=== PATIENT | male | born 1980 | race Caucasian/White ===

== ENCOUNTER 2022-08-13 04:55 | Inpatient (IN) | payer MEDICAID, SELFPAY ==
[2022-08-13] VITALS (11 sets, daily range): BP systolic 119–160; BP diastolic 67–90; PULSE 97–116; RESP 16–26; TEMP 36.3–38.1; O2SAT 95–97; BMI 26.7
--- NOTE | 2022-08-13 | ECG_ITS ---
Test Reason : increase heart rate Blood Pressure : / mmHG Vent. Rate : 116 BPM Atrial Rate : 116 BPM P-R Int : 134 ms QRS Dur : 082 ms QT Int : 350 ms P-R-T Axes : 037 040 001 degrees QTc Int : 486 ms Sinus tachycardia nonspecific T wave changes Abnormal RECG No previous ECGs available Referred By: Generic ED Physician Electronically Signed By:Uvaldo Calderon
--- NOTE | ~2022-08-13 | XR_ITS ---
EXAMINATION: XR CHEST CLINICAL INFORMATION: Febrile COMPARISON: 02/21/2019 TECHNIQUE: Frontal view of the chest was obtained. FINDINGS: Normal symmetric lung volumes. No parenchymal consolidation. No pleural effusion. No pneumothorax. Cardiomediastinal silhouette and pulmonary vascularity are within normal limits. No acute osseous abnormalities. XR/XR chest 1V IMPRESSION: Clear lungs
--- NOTE | ~2022-08-13 | CT_ITS ---
EXAMINATION: CT of the abdomen and pelvis with and without IV contrast/GI bleeding protocol CLINICAL INFORMATION: GI bleed. Cirrhosis. COMPARISON: Previous CT of the abdomen and pelvis May 2009 TECHNIQUE: Axial images through the abdomen and pelvis without IV contrast. Axial images through the abdomen and pelvis following 80 mL Omnipaque 350 IV contrast. Portal phase and 2 minute delayed venous phase imaging was performed. Unfortunately oral contrast was administered and arterial phase imaging was not performed.. Sagittal and coronal reconstructions on the technologist workstation were performed. This CT examination was performed using dose optimization techniques as appropriate, variously including the following: *Automated exposure control *Adjustment of mA and/or kV according to patient size (this includes techniques or standardized protocols for targeted exams where dose is matched to indication/reason for exam; i.e. extremities or head) *Use of iterative reconstruction technique. DLP 6 4 5 mg/cm. FINDINGS: The lung bases are clear. There is an esophageal hernia. There is heterogeneous fatty infiltration of the liver. The liver is enlarged. No definite evidence of cirrhosis. There is high attenuation in the gallbladder. No gallstones are seen. No biliary duct dilatation. The pancreas is normal. The spleen is normal. The adrenal glands and kidneys are normal. The bladder and prostate gland are normal. Unfortunately there appears to be: Oral contrast administration. This lowers sensitivity for detection of hemorrhage. There is diverticulosis of the colon. No evidence of diverticulitis or colitis. Small and large bowel is otherwise normal. The appendix is normal. There is an esophageal hernia. The stomach is collapsed. There is question of wall thickening of the esophageal hernia/proximal stomach. There are paraesophageal varices. No ascites. The main portal vein and splenic vein are patent. The hepatic veins are patent. The abdominal aorta is normal in caliber. Active arterial bleeding cannot be assessed as arterial phase imaging was not performed. No evidence of bleeding is appreciated. Small umbilical hernia containing fat. Bony structures are normal. CT/CT gi bleed abd pel wo/w IVcon IMPRESSION: Limited exam due to technique. Diverticulosis of the colon. No evidence of diverticulitis or colitis. Esophageal hernia. There may be wall thickening of the esophageal hernia. Small paraesophageal varices. Enlarged liver with heterogeneous fatty infiltration.
[2022-08-13 05:33] LABS: Hematocrit 25.7 % (42.0-52.0); Hemoglobin 8.5 g/dl (14.0-18.0); Mean Corpuscular HGB Conc 33.1 g/dl (31.0-36.0); Mean Corpuscular Hemoglobin 26.4 pg (27.0-33.0); Mean Corpuscular Volume 79.8 fL (80.0-98.0); Mean Platelet Volume 10.3 fL (9.4-12.4); NRBC Pct Auto 0.2 /100WBC (0.0-0.2); Platelet Count 117 X10*3/uL (160-400); Red Blood Count 3.22 X10*6/uL (4.60-5.80); Red Cell Distribution Width 15.5 % (11.0-16.0); White Blood Count 8.7 X10*3/uL (4.8-10.8)
--- NOTE | 2022-08-13 05:36 | ED_ITS ---
HPI - General Adult General Chief complaint: General Medical Stated complaint: NAUSEA W/NO REL OF MEDS, FROM [facility] PER EMS Time Seen by Provider: 08/13/22 05:33 Source: patient Mode of arrival: EMS Limitations: no limitations History of Present Illness HPI narrative: Patient alcoholic came from detox center [facility] as having severe nausea and vomiting , shaking unable to hold glass in his hand to drink water. Patient drinks vodka about 20 nips a day last drink was 2 days ago patient does have history of DTs in the past been to detox for last 2 days was given Valium and Zofran without much relief vomiting is dark in color also stool is blackish for last few days patient does have history of peptic ulcer disease with bleeding ulcer but 6 months ago not taking any PPI now. Patient does have epigastric tenderness. Related Data Allergies Allergy/AdvReac Type Severity Reaction Status Date / Time latex [LATEX] Allergy Unknown UNKNOWN Verified 08/13/22 05:12 trazodone AdvReac Stomach Verified 08/13/22 05:12 Upset Review of Systems Review of Systems: Yes all other systems are reviewed and are negative [facility] Social History Social History Alcohol intake: current Alcohol intake frequency: 3 or more drinks per day Alcohol type: hard liquor Smoked in Last 30 Days: No Use of substances other than those prescribed or required for medical reasons: No Advance Directives: No Advance Directives Information Provided: Yes Physical Exam ED Vital Signs: Vital Signs - 24 hr 08/13/22 04:57 Temperature 99.3 F Pulse Rate 116 H Respiratory Rate 22 H Blood Pressure 144/79 H Pulse Oximetry 97 Oxygen Delivery Method Room Air BMI result Body Mass Index 26.7 Appearance: Alert. Oriented X3. Shaking Eyes: PERRLA, No Nystagmus ENT: Pharynx normal. Oral Mucosa moist Neck: Normal inspection. Neck supple. CVS: Normal heart rate and rhythm. Pulses normal. Respiratory: No respiratory distress. Equal air entry bilateral, no wheezing/rales/rhonchi Abdomen: Soft, epigastric tenderness+ Bowel sounds are present, no mass palpable, no CVA tenderness Rectal: Black stool guaiac positive Skin: Skin warm and dry. Normal skin color. Normal skin turgor. Extremities: No lower extremity edema. No calf tenderness Neuro: Oriented X 3. No motor deficit. No sensory deficit.No cerebellar signs , cranial nerves II-XII intact Medications Administered Discontinued Medications Generic Name Dose Route Start Last Admin Trade Name Matt PRN Reason Stop Dose Admin Sodium Chloride 1,000 mls @ 999 mls/hr 08/13/22 05:33 08/13/22 05:42 Ns IV 08/13/22 06:33 999 mls/hr .Q1H1M ONE Administration Lorazepam 2 mg 08/13/22 05:33 08/13/22 05:38 Lorazepam 2 Mg/Ml Vial IVPUSH 08/13/22 05:34 2 mg ONCE ONE Administration Phenobarbital Sodium 300 mg 08/13/22 06:15 08/13/22 06:25 Phenobarbital Sodium 130 Mg/Ml Im Once IM 08/13/22 06:16 300 mg ONCE ONE Administration Protocol Medical Decision Making Medical Decision Making [facility] Narrative: Patient alcoholic withdrawal with significant anemia with alcoholic gastritis guaiac-positive stools anemic thrombocytopenic started on phenobarb protocol admit hospitalist informed about admission requested have a CT scan of the abdomen Consult Healthcare Provider Management of the patient was discussed with: Hospitalist Lab Data [facility] Lab Attestation statement: I reviewed the patient's lab results. 08/13/22 05:24 08/13/22 05:24 Labs: Lab Results 08/13/22 08/13/22 08/13/22 Range/Units 05:24 05:24 05:24 WBC 8.7 (4.8-10.8) X10*3/uL RBC 3.22 L (4.60-5.80) X10*6/uL Hgb 8.5 L (14.0-18.0) g/dl Hct 25.7 L (42.0-52.0) % MCV 79.8 L (80.0-98.0) fL MCH 26.4 L (27.0-33.0) pg MCHC 33.1 (31.0-36.0) g/dl RDW 15.5 (11.0-16.0) % Plt Count 117 L (160-400) X10*3/uL MPV 10.3 (9.4-12.4) fL Absolute Nucleated RBC 0.020 H (0.0-0.012) X10*3/uL Nucleated RBC % (auto) 0.2 (0.0-0.2) /100WBC Sodium 130 L (135-145) mmol/L Potassium 3.8 (3.3-5.1) mmol/L Chloride 94 L (96-108) mmol/L Carbon Dioxide 24 (22-29) mmol/L Anion Gap 16 (12-20) BUN 19 H (9-16) mg/dL Creatinine 0.68 (0.5-1.4) mg/dL Estim Creat Clear Calc 149.1 Estimated GFR > 60 Random Glucose 137 H (60-115) mg/dL Calcium 8.4 (8.4-10.2) mg/dL Magnesium 2.0 (1.6-2.6) mg/dL Total Bilirubin 1.0 (0.0-1.0) mg/dL AST 112 H (5-37) U/L ALT 49 H (0-40) U/L Alkaline Phosphatase 93 (39-117) U/L Total Protein 6.1 L (6.5-8.0) g/dL Albumin 3.6 (3.5-5.0) g/dL COVID-19 (REBEL) (Negative) COVID-19 Clin Com S. pyogenes GrpA KIRTI Negative (Negative) 08/13/22 Range/Units 05:24 WBC (4.8-10.8) X10*3/uL RBC (4.60-5.80) X10*6/uL Hgb (14.0-18.0) g/dl Hct (42.0-52.0) % MCV (80.0-98.0) fL MCH (27.0-33.0) pg MCHC (31.0-36.0) g/dl RDW (11.0-16.0) % Plt Count (160-400) X10*3/uL MPV (9.4-12.4) fL Absolute Nucleated RBC (0.0-0.012) X10*3/uL Nucleated RBC % (auto) (0.0-0.2) /100WBC Sodium (135-145) mmol/L Potassium (3.3-5.1) mmol/L Chloride (96-108) mmol/L Carbon Dioxide (22-29) mmol/L Anion Gap (12-20) BUN (9-16) mg/dL Creatinine (0.5-1.4) mg/dL Estim Creat Clear Calc Estimated GFR Random Glucose (60-115) mg/dL Calcium (8.4-10.2) mg/dL Magnesium (1.6-2.6) mg/dL Total Bilirubin (0.0-1.0) mg/dL AST (5-37) U/L ALT (0-40) U/L Alkaline Phosphatase (39-117) U/L Total Protein (6.5-8.0) g/dL Albumin (3.5-5.0) g/dL COVID-19 (REBEL) Negative (Negative) COVID-19 Clin Com See Note S. pyogenes GrpA KIRTI (Negative) Independent Interpretation I performed an independent interpretation of an: EKG Interpretation: Sinus tachycardia with heart rate of 116 normal interval normal axis no acute ST-T changes no acute ischemia Discharge Plan Discharge Clinical Impression: Alcohol withdrawal, Alcoholic gastritis with bleeding Patient Disposition: Admitted As Inpatient
[2022-08-13] MEDS: LORazepam 2 MG/ML VIAL IVPUSH (05:38)
[2022-08-13 05:39] LABS: IDNOW Serial# 08D9AD1C; Strep A Nucleic Acid Negative (Negative)
[2022-08-13] MEDS: 0.9 % Sodium Chloride 1,000 ML 999 ML IV ×2 (05:42→06:47)
[2022-08-13 05:50] LABS: Alanine Aminotransferase 49 U/L (0-40); Albumin Level 3.6 g/dL (3.5-5.0); Alkaline Phosphatase 93 U/L (39-117); Anion Gap 16 (12-20); Aspartate Amino Transferase 112 U/L (5-37); Blood Urea Nitrogen 19 mg/dL (9-16); Calcium 8.4 mg/dL (8.4-10.2); Carbon Dioxide 24 mmol/L (22-29); Chloride 94 mmol/L (96-108); Creatinine Clr Calc Pharmacy 149.1; Estimated Glomerular Filt Rate > 60; Glucose Random 137 mg/dL (60-115); Potassium 3.8 mmol/L (3.3-5.1); Sodium 130 mmol/L (135-145); Total Protein 6.1 g/dL (6.5-8.0)
[2022-08-13 05:55] LABS: COVID-19 Test Negative (Negative); IDNOW Serial# BCCEAD1C
--- NOTE | 2022-08-13 06:01 | MHC.EDTECH ---
EKG WAS DONE 05:05 AM
[2022-08-13] MEDS: PHENobarbitaL sodium 130 MG/ML IM ONCE 300 MG IM (06:25)
[2022-08-13] MEDS: Thiamine HCL 100 MG TABLET PO (06:37)
[2022-08-13] MEDS: Folic Acid 1 MG TABLET PO (06:37)
[2022-08-13] MEDS: Ferrous Sulfate 324 MG TABLET.DR PO ×2 (06:37→18:00)
[2022-08-13] MEDS: Pantoprazole Sodium 40 MG/10 ML VIAL 80 MG IVPUSH (06:40)
[2022-08-13 06:44] LABS: OBS Int Ctl Valid YES; OBS1 POSITIVE (NEGATIVE)
[2022-08-13] MEDS: Prochlorperazine Edisylate 10 MG/2 ML VIAL IVPUSH (06:46)
[2022-08-13 06:52] LABS: Iron 43 mcg/dL (45-160); Percent Iron Saturation 14 % (15-50); Total Iron Binding Capacity 314 mcg/dL (228-428); Unsaturated Iron Binding 271 ug/dL
[2022-08-13 07:24] LABS: Folate 4.8 ng/mL (> or = 4.0); Vitamin B12 445 pg/mL (200-900)
--- NOTE | 2022-08-13 07:24 | PM.IMHP ---
History of Present Illness Date of Service: 08/13/22 Chief Complaint: hand tremors 42 year old man presenting with severe hand tremors from alcohol withdrawal. He was at [facility] for detox and was noted to have such severe tremors he could not hold a glass. He was sent to the ED for further evaluation. He drinks about 15 shots a day at home and stopped drinking 08/12/22. He lives at home with his kids with his parents support. He denies chest pain, shortness breath, nausea vomiting diarrhea, recent travel, recent illness. He was noted to be anemic with hemoglobin of 8.5 and hematocrit of 25.7 with positive stool occult. Initial sodium of 130. Abdominal pelvic CT with diverticulosis of the colon with no evidence of diverticulitis, colitis. He has been tachycardia: The ER secondary to alcohol withdrawal and blood pressure mildly elevated. He was started on phenobarbital, given IV fluids, Ativan, vitamins and iron. He will be admitted for further management and treatment of acute alcohol withdrawal. Review of Systems Review of Systems: Denies any recent fever chills or decrease in appetite respiratory denies any shortness of breath coverage production cardiovascular he denies chest pain gastrointestinal denies any dysphagia abdominal pain nausea vomiting or diarrhea genitourinary denies any dysuria frequency or hematuria musculoskeletal denies any joint pain or swelling neuropsych denies any weakness or seizures, reported hand tremors all other systems reviewed are negative [facility] Medical History (Updated 08/13/22 @ 14:50 by Shu Augustine NP) Depression Pertinent family history: no cardiac disease Social History Household Members: Children [facility] Do you presently have visiting nurse or other home services: No Alcohol intake: current Alcohol intake frequency: 3 or more drinks per day Alcohol type: hard liquor Patient Tobacco Use Status: Never used Tobacco Smoked in Last 30 Days: No Use of substances other than those prescribed or required for medical reasons: No Have you been hit, kicked, punched, or otherwise hurt by someone within the past year? If so, by whom?: No Do you feel safe in your current relationship?: Yes Is there a partner from a previous relationship who is making you feel unsafe now?: No Are you made to feel afraid or neglected: No Advance Directives: No Advance Directives Information Provided: Yes Do you have thoughts of harming others: None Do you have a plan to hurt others: No Plan Recently lost weight without trying: Yes How much weight loss: 2-13 pounds Eating poorly because of decreased appetite: Yes Nutrition screen score: 4 Nutrition Risks: No Nutritional Risk Poor oral hygiene: No Meds Allergies Allergy/AdvReac Type Severity Reaction Status Date / Time latex [LATEX] Allergy Unknown UNKNOWN Verified 08/13/22 05:12 trazodone AdvReac Stomach Verified 08/13/22 05:12 Upset Active Medications: Current Medications Acetaminophen (Acetaminophen 325 Mg Tablet) 650 mg PO Q6H PRN PRN Reason: Pain, Mild (Pain Scale 1-3) Ondansetron HCl (Ondansetron Hcl 4 Mg/2 Ml Vial) 4 mg IVPUSH Q8H PRN PRN Reason: Nausea and Vomiting Pharmacy Consult (Consult Rx Etoh Phenob Im/Po) 1 each MISCELLANE ONCE PRN; Protocol PRN Reason: Consult order Phenobarbital (Phenobarbital 30 Mg Tablet) 60 mg PO BID [facility] Stop: 08/15/22 21:01 Phenobarbital (Phenobarbital 30 Mg Tablet) 30 mg PO BID [facility]; Protocol Stop: 08/17/22 21:01 Phenobarbital (Phenobarbital 30 Mg Tablet) 30 mg PO DAILY [facility]; Protocol Stop: 08/19/22 09:01 Phenobarbital Sodium (Phenobarbital Sodium 130 Mg/Ml Vial Im Q3hx2) 225 mg IM Q3H [facility]; Protocol Stop: 08/13/22 12:31 Sodium Chloride (0.9 % Sodium Chloride Flush 3 Ml Syringe) 3 ml IVFLUSH QSHIFT [facility] Home Medications Medication Instructions Recorded Confirmed Last Taken Type acamprosate 333 mg tablet,delayed 666 mg PO TID 08/13/22 08/13/22 Unknown History release bupropion HCl 150 mg tablet,12 hr 150 mg PO DAILY 08/13/22 08/13/22 Unknown History sustained-release fluoxetine 20 mg capsule (Prozac) 20 mg PO DAILY 08/13/22 08/13/22 Unknown History pantoprazole 40 mg tablet,delayed 40 mg PO DAILY 08/13/22 08/13/22 Unknown History release Physical Exam Vital Signs and Narrative: Vital Signs: Last Vital Signs Temp 99.3 F 08/13/22 04:57 Pulse 113 H 08/13/22 07:20 Resp 16 08/13/22 07:20 BP 144/79 H 08/13/22 04:57 Pulse Ox 96 08/13/22 07:20 O2 Del Method Room Air 08/13/22 07:20 BMI result Body Mass Index 26.7 Appearing in no acute distress head is normocephalic atraumatic eyes pupils are PERRLA sclera is anicteric mouth throat mucous membranes are intact and moist neck is supple no lymphadenopathy, no JVD noted lung sounds are clear to auscultation heart regular rate rhythm, clear S1, S2 positive bowel sounds, abdomen is soft, nontender neuro patient is alert x3, no focal deficits hand tremors Results Labs 08/13/22 05:24 08/13/22 05:24 Labs: Laboratory Results - last 24 hr 08/13/22 08/13/22 08/13/22 05:24 05:24 05:24 MCV 79.8 L MCH 26.4 L MCHC 33.1 RDW 15.5 Plt Count 117 L MPV 10.3 Absolute Nucleated RBC 0.020 H Nucleated RBC % (auto) 0.2 Anion Gap 16 Estim Creat Clear Calc 149.1 Estimated GFR > 60 Random Glucose 137 H Calcium 8.4 Magnesium 2.0 Iron 43 L TIBC 314 % Saturation 14 L Unsat Iron Binding 271 Total Bilirubin 1.0 AST 112 H ALT 49 H Alkaline Phosphatase 93 Total Protein 6.1 L Albumin 3.6 Stool Occult Blood COVID-19 (REBEL) COVID-19 Clin Com S. pyogenes GrpA KIRTI Negative Blood Type Antibody Screen 08/13/22 08/13/22 08/13/22 05:24 06:30 06:33 MCV MCH MCHC RDW Plt Count MPV Absolute Nucleated RBC Nucleated RBC % (auto) Anion Gap Estim Creat Clear Calc Estimated GFR Random Glucose Calcium Magnesium Iron TIBC % Saturation Unsat Iron Binding Total Bilirubin AST ALT Alkaline Phosphatase Total Protein Albumin Stool Occult Blood POSITIVE COVID-19 (REBEL) Negative COVID-19 Clin Com See Note S. pyogenes GrpA KIRTI Blood Type O Positive Antibody Screen NEGATIVE Assessment and Plan (1) Alcohol withdrawal: Status: Acute Plan 42 year old man admitted with alcohol withdrawal symptoms. Was at [facility] for detox. Alcohol withdrawal Last drink was 08/12/22 started on phenobarbitol IV fluids vitamins encourage food intake addiction consult Anemia, unspecified Likely alcoholic gastritis and iron deficiency occult stool positive IV pepcid for now iron supplementation GI following> no EGD at this time follow HH Hyponatremia secondary to dehydration continue LR for now monitor sodium closely Transaminitis secondary to alcohol use DVT propylaxis with SCD boots Attending Dr. Rodrigues Full code 2 midnight for tx of alcohol withdrawl requiring phenobarbitol protocol and electrolyte monitoring Time Spent With Patient Time: Total time managing care of this patient today ____ minutes. Quality Stroke Does the patient have a stroke diagnosis?: No VTE Prior VTE?: No VTE Risk Level:: Medical - moderate - high VTE Device Contraindication: N/A - Device Ordered VTE Drug Contraindication: Treatment Not Indicated
[2022-08-13] MEDS: Acetaminophen 325 MG TABLET 650 MG PO ×3 (07:48→21:30)
[2022-08-13] MEDS: Famotidine/PF 20 MG/2 ML VIAL IVPUSH ×2 (07:48→21:30)
[2022-08-13] MEDS: ondansetron HCL 4 MG/2 ML VIAL IVPUSH ×2 (07:48→21:30)
[2022-08-13] MEDS: PHENobarbitaL sodium 130 MG/ML VIAL IM Q3Hx2 225 MG IM ×2 (07:49→12:52)
[2022-08-13] MEDS: 0.9 % Sodium Chloride Flush 3 ML SYRINGE IVFLUSH (07:56)
--- NOTE | 2022-08-13 08:00 | PC.NURSE ---
Initial contact with pt. pt ao x 4, calm and cooperative with care. lung sounds clear, ST on monitor without ectopy, abd soft and nontender, no peripheral edema noted. pt denies any chest pain, denies any shortness of breath. hiccuping during assessement. ciwa as charted. breakfast offered, pt declined at this time. meds per order. repositioned for comfort.
[2022-08-13] MEDS: iohexoL 350 MG/ML 100 ML INFUS..BTL IV (09:19)
[2022-08-13 09:56] LABS: Sodium 131 mmol/L (135-145)
--- NOTE | 2022-08-13 10:17 | PC.NURSE ---
rn to rn report given to titi. pt aware of plan of care for transfer to room 445.
--- NOTE | 2022-08-13 11:57 | PM.GICN ---
History of Present Illness Data of Consult Service Date: 08/13/22 Requesting physician: Shu Augustine Primary Care Provider: Unknown Physician HPI Reason for consult: anemia 42 yr old m with hx of alcoholism who I am seeing for assessment for anemia Patient was at a detox center, with last alcohol drink 2 d ago. He would normally drink 20 nips/day of vodka, now he was having severe nausea and coffee colored emesis with shakes and black colored stools. He denies nsaid use. HE said he has hx of ulcers in past but not been on PPI. Denies dysphagia, no reflux or abdominal pain. No chest pain. Imaging- diverticulosis, small varices, hiatal hernia, fatty liver, thickened esophagus labs; anemia, na 130, iron sat- 14%, mild elevated ast/alt Review of Systems Review of Systems: Constitutional : No Weight loss, No Fever, No Chills ENT/Mouth : No sore throat, No Rhinorrhea Eyes: No Swelling, No Redness Cardiovascular : No Chest Pain, No SOB, No Edema Respiratory : No Cough, No Sputum, No Wheezing Gastrointestinal : see HPI Genitourinary : NO Dysuria, No Urinary Frequency, No Hematuria, No Urgency Musculoskeletal : No joint pain, No Myalgias, No Joint Swelling Skin : No Skin Lesions, No rash Neuro : + Weakness, No Numbness, No Dizziness, No Headache Psych : No Anxiety/Panic, No Depression Heme/Lymph: No Bruising, No Lymphadenopathy Endocrine : No Polyuria, No Polydipsia All other systems reviewed and are negative. [facility] Past Medical History Medical History (Updated 08/13/22 @ 14:50 by Shu Augustine NP) Depression Family History Pertinent family history: no fh of ulcers Social History Social History Household Members: Children Housing: Condominium Do you presently have visiting nurse or other home services: No Alcohol intake: current Alcohol intake frequency: 3 or more drinks per day Alcohol type: hard liquor Patient Tobacco Use Status: Never used Tobacco Smoked in Last 30 Days: No Use of substances other than those prescribed or required for medical reasons: No Currently Displaying Signs/Symptoms of Drug Intoxication Withdrawal: No Have you been hit, kicked, punched, or otherwise hurt by someone within the past year? If so, by whom?: No Do you feel safe in your current relationship?: Yes Is there a partner from a previous relationship who is making you feel unsafe now?: No Are you made to feel afraid or neglected: No Advance Directives: No Advance Directives Information Provided: Yes Do you have thoughts of harming others: None Do you have a plan to hurt others: No Plan Recently lost weight without trying: Yes How much weight loss: 2-13 pounds Eating poorly because of decreased appetite: Yes Nutrition screen score: 4 Nutrition Risks: No Nutritional Risk Poor oral hygiene: No Meds Allergies Allergy/AdvReac Type Severity Reaction Status Date / Time latex [LATEX] Allergy Unknown UNKNOWN Verified 08/13/22 05:12 trazodone AdvReac Stomach Verified 08/13/22 05:12 Upset Active Medications: Current Medications Acetaminophen (Acetaminophen 325 Mg Tablet) 650 mg PO Q6H PRN PRN Reason: Pain, Mild (Pain Scale 1-3) Last Admin: 08/13/22 07:48 Dose: 650 mg Famotidine (Famotidine/Pf 20 Mg/2 Ml Vial) 20 mg IVPUSH BID [facility] Last Admin: 08/13/22 07:48 Dose: 20 mg Ondansetron HCl (Ondansetron Hcl 4 Mg/2 Ml Vial) 4 mg IVPUSH Q8H PRN PRN Reason: Nausea and Vomiting Last Admin: 08/13/22 07:48 Dose: 4 mg Pharmacy Consult (Consult Rx Etoh Phenob Im/Po) 1 each MISCELLANE ONCE PRN; Protocol PRN Reason: Consult order Phenobarbital (Phenobarbital 30 Mg Tablet) 60 mg PO BID [facility] Stop: 08/15/22 21:01 Phenobarbital (Phenobarbital 30 Mg Tablet) 30 mg PO BID [facility]; Protocol Stop: 08/17/22 21:01 Phenobarbital (Phenobarbital 30 Mg Tablet) 30 mg PO DAILY [facility]; Protocol Stop: 08/19/22 09:01 Phenobarbital Sodium (Phenobarbital Sodium 130 Mg/Ml Vial Im Q3hx2) 225 mg IM Q3H [facility]; Protocol Stop: 08/13/22 12:31 Last Admin: 08/13/22 07:49 Dose: 225 mg Sodium Chloride (0.9 % Sodium Chloride Flush 3 Ml Syringe) 3 ml IVFLUSH QSHIFT [facility] Last Admin: 08/13/22 07:56 Dose: 3 ml Home Medications Medication Instructions Recorded Confirmed Last Taken Type acamprosate 333 mg tablet,delayed 666 mg PO TID 08/13/22 08/13/22 Unknown History release bupropion HCl 150 mg tablet,12 hr 150 mg PO DAILY 08/13/22 08/13/22 Unknown History sustained-release fluoxetine 20 mg capsule (Prozac) 20 mg PO DAILY 08/13/22 08/13/22 Unknown History pantoprazole 40 mg tablet,delayed 40 mg PO DAILY 08/13/22 08/13/22 Unknown History release Physical Exam Vital Signs: Vital Signs: Last Vital Signs Temp 97.3 F 08/13/22 10:54 Pulse 106 H 08/13/22 10:54 Resp 20 08/13/22 10:54 BP 140/75 H 08/13/22 10:54 Pulse Ox 96 08/13/22 10:54 O2 Del Method Room Air 08/13/22 10:54 BMI result Body Mass Index 26.7 EXAM: GENERAL: The patient is dishevelled VITAL SIGNS:see workflow HEENT: Nonicteric sclerae, PERRLA, EOMI. Oropharynx clear. Moist mucous membranes. Conjunctivae appear well perfused. No thyroid mass. CHEST: Chest wall is nontender. HEART: Regular rate and rhythm without murmurs. LUNGS: Clear to auscultation bilaterally. SKIN: No rash, no excessive bruising, petechiae, or purpura. NEUROLOGIC: Cranial nerves II-XII intact without motor/sensory deficit. psych--slightly drowsy, on alcohol withdrawal protocol Results Labs 08/13/22 05:24 08/13/22 09:34 Labs: Short CBC 08/13/22 Range/Units 05:24 WBC 8.7 (4.8-10.8) X10*3/uL Hgb 8.5 L (14.0-18.0) g/dl Hct 25.7 L (42.0-52.0) % Plt Count 117 L (160-400) X10*3/uL BMP 08/13/22 08/13/22 05:24 09:34 Sodium 130 L 131 L Potassium 3.8 Chloride 94 L Carbon Dioxide 24 BUN 19 H Creatinine 0.68 Calcium 8.4 Liver Function 08/13/22 Range/Units 05:24 Total Bilirubin 1.0 (0.0-1.0) mg/dL AST 112 H (5-37) U/L ALT 49 H (0-40) U/L Alkaline Phosphatase 93 (39-117) U/L Albumin 3.6 (3.5-5.0) g/dL Imaging CT scan - abdomen: My impression: enlarged fatty liver, thickened esophagus Assessment and Plan (1) Alcohol withdrawal: Status: Acute (2) Alcoholic gastritis with bleeding: Status: Acute Plan 1/ Acute blood loss anemia most likely alcoholic gastritis or esophagitis with MW tear, currently in acute alcohol withdrawal PLAN: 1/ cont with alcohol withdrawal protocol 2/ high dose PPI BD, can add carafate 3/ avoid nsaids 4/ if ongoing sx and blood loss then EGD for assessment Time Spent With Patient Time: Total time managing care of this patient today ____ minutes. Procedures Date of Service Date of Service: 08/13/22
[2022-08-13] MEDS: Lactated Ringers 1,000 ML 100 ML IVCONT (14:57)
--- NOTE | 2022-08-13 15:48 | MHC.RECOVRN ---
This comic writer checked in with patient after receiving addiction consult, patient was laying in bed, lights dim. Patient reports not feeling well, feeling extremely nauseous. Patient agreeable to the Addiction/Recovery Team returning tomorrow when patient more stable.
[2022-08-13 15:57] LABS: Sodium 131 mmol/L (135-145)
[2022-08-14] VITALS (13 sets, daily range): BP systolic 114–140; BP diastolic 59–79; PULSE 88–115; RESP 16–20; TEMP 36–38.1; O2SAT 95–100
[2022-08-14] MEDS: PHENobarbitaL sodium 130 MG/ML VIAL IM (00:54)
[2022-08-14 00:56] LABS: Lactic Acid 0.9 mmol/L (0.5-2.0)
[2022-08-14 04:07] LABS: Appearance Urine Clear; Color Urine Yellow; Glucose Urine UA Negative (Negative); Leukocyte Esterase Urine Negative (Negative); Nitrite Urine Negative (Negative); PH 8.5 (5.0-9.0); Urine Blood Negative (Negative); Urine Ketones Negative (Negative); Urine Protein Negative (Neg-Trace)
[2022-08-14 04:19] LABS: Amphetamine Screen Urine Not Detected (Not Detect); Barbiturates, Urine POSITIVE (Not Detect); Benzodiazepines Screen Urine POSITIVE (Not Detect); Cannabinoid Screen Urine Not Detected (Not Detect); Cocaine Screen Urine Not Detected (Not Detect); Fentanyl, urine Not Detected (Not Detect); Opiate Screen Urine Not Detected (Not Detect); Phencyclidine Screen Urine Not Detected (Not Detect)
--- NOTE | 2022-08-14 05:38 | PC.NURSE ---
There was a IT computer glitch and the documentation done under RN Philomena Morse on 08/13 around 20:00 should be under RN Dev Edwards. IT aware.
[2022-08-14] MEDS: Lactated Ringers 1,000 ML 100 ML IVCONT (05:45)
[2022-08-14] MEDS: Prochlorperazine Edisylate 10 MG/2 ML VIAL 5 MG IVPUSH (05:45)
[2022-08-14 07:16] LABS: Alanine Aminotransferase 41 U/L (0-40); Albumin Level 2.9 g/dL (3.5-5.0); Alkaline Phosphatase 82 U/L (39-117); Aspartate Amino Transferase 118 U/L (5-37); Bilirubin Direct 0.3 mg/dL (0.0-0.5); Bilirubin Total 0.8 mg/dL (0.0-1.0); Magnesium 2.1 mg/dL (1.6-2.6)
[2022-08-14 07:17] LABS: Alanine Aminotransferase 41 U/L (0-40); Albumin Level 2.9 g/dL (3.5-5.0); Alkaline Phosphatase 82 U/L (39-117); Anion Gap 10 (12-20); Aspartate Amino Transferase 119 U/L (5-37); Bilirubin Total 0.8 mg/dL (0.0-1.0); Blood Urea Nitrogen 12 mg/dL (9-16); Calcium 7.7 mg/dL (8.4-10.2); Carbon Dioxide 25 mmol/L (22-29); Chloride 102 mmol/L (96-108); Estimated Glomerular Filt Rate > 60; Glucose Random 95 mg/dL (60-115); Potassium 3.9 mmol/L (3.3-5.1); Sodium 133 mmol/L (135-145)
[2022-08-14] MEDS: PHENobarbitaL 30 MG TABLET 60 MG PO ×2 (08:15→21:28)
[2022-08-14] MEDS: Famotidine/PF 20 MG/2 ML VIAL IVPUSH (08:16)
[2022-08-14] MEDS: FLUoxetine HCl 20 MG CAPSULE PO (08:16)
[2022-08-14] MEDS: Ferrous Sulfate 324 MG TABLET.DR PO ×2 (08:17→17:17)
[2022-08-14] MEDS: Folic Acid 1 MG TABLET PO (08:19)
[2022-08-14] MEDS: Thiamine HCL 100 MG TABLET PO (08:19)
[2022-08-14 08:52] LABS: Hematocrit 23.2 % (42.0-52.0); Hemoglobin 7.5 g/dl (14.0-18.0); Mean Corpuscular HGB Conc 32.3 g/dl (31.0-36.0); Mean Corpuscular Hemoglobin 27.4 pg (27.0-33.0); Mean Corpuscular Volume 84.7 fL (80.0-98.0); NRBC Pct Auto 0.4 /100WBC (0.0-0.2); Platelet Count 100 X10*3/uL (160-400); Red Blood Count 2.74 X10*6/uL (4.60-5.80); Red Cell Distribution Width 15.9 % (11.0-16.0); White Blood Count 4.8 X10*3/uL (4.8-10.8)
--- NOTE | 2022-08-14 09:37 | MHC.CM.PN ---
CM MET WITH PT AT BEDSIDE, LIVES WITH 2 CHILDREN [place]. CHILDREN ARE STAYING WITH PARENTS PT CAME FROM IP DETOX AT [facility]. PT IS UNABLE TO REACH PARENTS NUMBER LISTED IS INCORRECT AND HE DOES NOT HAVE NEW NUMBER. CM CALLED [facility] AND THEY DO NOT HAVE CURRENT NUMBER. INDEPENDENT AT BASELINE. NO COVID VAX NO HCP, DECLINES AT THIS TIME. PCP DR. KAPLAN IN [place] DP: HOME, DOES NOT WISH TO RETURN TO [facility] BUT WOULD LIKE TO DO A OP DETOX PROGRAM. FAMILY WILL TRANSPORT IF CAN REACH. CM WILL CONTINUE TO FOLLOW FOR DC PLAN.
--- NOTE | 2022-08-14 10:22 | MHC.RECOVRN ---
Briefly met with pt in 445 to introduce self and provide support. Pt laying in bed, awake, alert, does not easily engage in conversation, reporting not feeling well, slightly tremulous. Pt reports having been at [facility], however, became very dehydrated and was brought to [facility]. Pt subsequently admitted for management of alcohol withdrawal. Pt reports having been hospitalized for similar circumstances in the past. Pt reports desire to attend online AA meetings once discharged. Currently, pt requesting to rest. Will continue to follow.
[2022-08-14] MEDS: ondansetron HCL 4 MG/2 ML VIAL IVPUSH (10:55)
--- NOTE | 2022-08-14 13:22 | P.PNIM_ITS ---
Subjective Subjective Date of Service: 08/14/22 Interval History: being followed for alcohol withdrawal and coffee-ground emesis, feeling better less shakiness complaining of persistent mid abdominal discomfort is NPO for possible EGD, however patient does not want to proceed with upper endoscopy, no further episodes of coffee-ground emesis or bloody stools, denies lightheadedness dizziness, no chest pain, no shortness of breath, no urinary symptoms. Review of Systems Review of Systems: Yes all other systems are reviewed and are negative Physical Exam Vital Signs: Vital Signs: Last Vital Signs Temp 100.6 F H 08/14/22 11:53 Pulse 94 08/14/22 11:53 Resp 18 08/14/22 11:53 BP 122/72 08/14/22 11:53 Pulse Ox 99 08/14/22 11:53 O2 Del Method Room Air 08/14/22 11:53 BMI result Body Mass Index 26.7 Const: Other: General awake alert x3, resting comfortably in no acute distress. Neck is supple no JVD. CVS regular rate rhythm, Respiratory lungs clear to auscultation, no respiratory distress, no wheeze, no rhonchi. Gastrointestinal abdomen soft, mild mid abdominal tenderness, bowel sounds audible, no guarding , no rigidity. Extremities no edema. Neuro nonfocal ,speech clear, mild hand tremors. Skin no rash psych appropriate affect Objective Data Active Medications Acetaminophen (Acetaminophen 325 Mg Tablet) 650 mg PO Q6H PRN PRN Reason: Pain, Mild (Pain Scale 1-3) Last Admin: 08/13/22 21:30 Dose: 650 mg Documented By: MARTINEZ Famotidine (Famotidine/Pf 20 Mg/2 Ml Vial) 20 mg IVPUSH BID [facility] Last Admin: 08/14/22 08:16 Dose: 20 mg Documented By: ALEC Ferrous Sulfate (Ferrous Sulfate 324 Mg Tablet.) 324 mg PO BIDWM [facility] Last Admin: 08/14/22 08:17 Dose: 324 mg Documented By: ALEC Fluoxetine HCl (Fluoxetine Hcl 20 Mg Capsule) 20 mg PO DAILY [facility] Last Admin: 08/14/22 08:16 Dose: 20 mg Documented By: ALEC Folic Acid (Folic Acid 1 Mg Tablet) 1 mg PO DAILY [facility] Last Admin: 08/14/22 08:19 Dose: 1 mg Documented By: ALEC Lactated Ringer's (Lr) 1,000 mls @ 100 mls/hr IVCONT .Q10H [facility] Last Admin: 08/14/22 10:12 Dose: Not Given Documented By: ALEC Non-Admin Reason: IV Running Pt Own (Bupropion Hcl 150 Mg Tablet Sustained-Release 12 Hr) 150 mg PO DAILY [facility] Last Admin: 08/14/22 08:16 Dose: 150 mg Documented By: ALEC Ondansetron HCl (Ondansetron Hcl 4 Mg/2 Ml Vial) 4 mg IVPUSH Q8H PRN PRN Reason: Nausea and Vomiting Last Admin: 08/14/22 10:55 Dose: 4 mg Documented By: ALEC Pharmacy Consult (Consult Rx Etoh Phenob Im/Po) 1 each MISCELLANE ONCE PRN; Protocol PRN Reason: Consult order Phenobarbital (Phenobarbital 30 Mg Tablet) 60 mg PO BID [facility] Stop: 08/15/22 21:01 Last Admin: 08/14/22 08:15 Dose: 60 mg Documented By: ALEC Phenobarbital (Phenobarbital 30 Mg Tablet) 30 mg PO BID [facility]; Protocol Stop: 08/17/22 21:01 Phenobarbital (Phenobarbital 30 Mg Tablet) 30 mg PO DAILY [facility]; Protocol Stop: 08/19/22 09:01 Sodium Chloride (0.9 % Sodium Chloride Flush 3 Ml Syringe) 3 ml IVFLUSH QSHIFT [facility] Last Admin: 08/14/22 09:38 Dose: Not Given Documented By: ALEC Non-Admin Reason: IV Running Thiamine HCl (Thiamine Hcl 100 Mg Tablet) 100 mg PO DAILY [facility] Last Admin: 08/14/22 08:19 Dose: 100 mg Documented By: ALEC Labs 08/14/22 08:25 08/14/22 06:09 Labs: Laboratory Results - last 24 hr 08/14/22 08/14/22 08/14/22 00:32 03:30 03:30 MCV MCH MCHC RDW Plt Count MPV Absolute Nucleated RBC Nucleated RBC % (auto) Anion Gap Estim Creat Clear Calc Estimated GFR Random Glucose Lactic Acid 0.9 Calcium Magnesium Total Bilirubin Direct Bilirubin AST ALT Alkaline Phosphatase Total Protein Albumin Urine Color Yellow Urine Appearance Clear Urine pH 8.[address] [place] 1.020 Urine Protein Negative Urine Glucose (UA) Negative Urine Ketones Negative Urine Blood Negative Urine Nitrite Negative Ur Leukocyte Esterase Negative Urine Opiates Screen Not Detected Urine Fentanyl Screen Not Detected Ur Barbiturates Screen POSITIVE H Ur Phencyclidine Scrn Not Detected Ur Amphetamines Screen Not Detected U Benzodiazepines Scrn POSITIVE H Urine Cocaine Screen Not Detected U Marijuana (THC) Screen Not Detected 08/14/22 08/14/22 08/14/22 06:09 06:09 08:25 MCV 84.7 MCH 27.4 MCHC 32.3 RDW 15.9 Plt Count 100 L MPV 11.0 Absolute Nucleated RBC 0.020 H Nucleated RBC % (auto) 0.4 H Anion Gap 10 L Estim Creat Clear Calc 156.0 Estimated GFR > 60 Random Glucose 95 Lactic Acid Calcium 7.7 L D Magnesium 2.1 Total Bilirubin 0.8 0.8 Direct Bilirubin 0.3 AST 119 H 118 H ALT 41 H 41 H Alkaline Phosphatase 82 82 Total Protein 5.0 L 5.0 L Albumin 2.9 L 2.9 L Urine Color Urine Appearance Urine pH Ur Specific [place] Urine Protein Urine Glucose (UA) Urine Ketones Urine Blood Urine Nitrite Ur Leukocyte Esterase Urine Opiates Screen Urine Fentanyl Screen Ur Barbiturates Screen Ur Phencyclidine Scrn Ur Amphetamines Screen U Benzodiazepines Scrn Urine Cocaine Screen U Marijuana (THC) Screen Assessment and Plan (1) Alcohol withdrawal: Status: Acute (2) Alcoholic gastritis with bleeding: Status: Acute Plan 42 year old man admitted with alcohol withdrawal symptoms.? Was at [facility] for detox. Alcohol withdrawal Last drink was 08/12/22, less shakiness and tremors continue phenobarb protocol, IV fluids added folic acid and thiamine seen by Addiction Team patient desired to attend online AA meetings once discharged. acute on chronic Anemia due to acute UGI blood loss Likely alcoholic gastritis and iron deficiency noted to have drop in hematocrit this morning to 7.5/23.2 seen by GI they recommended upper endoscopy however patient declined the procedure will place on IV Protonix 40 mg b.i.d. and Carafate q.i.d. monitor H&H closely strongly recommend to abstain from alcohol Hyponatremia secondary to dehydration and beer potomania, sodium improved to 133 continue LR for now monitor sodium closely Transaminitis secondary to alcohol use,will follow DVT propylaxis with SCD boots Full code patient will need continued inpatient hospitalization for tx of anemia requiring blood transfusion, alcohol withdrawl requiring phenobarbitol protocol, and electrolyte monitoring. Time Spent With Patient Time: Total time managing care of this patient today ____ minutes. Quality Stroke Does the patient have a stroke diagnosis?: No VTE Prior VTE?: No VTE Risk Level:: Medical - moderate - high VTE Device Contraindication: N/A - Device Ordered VTE Drug Contraindication: Treatment Not Indicated
--- NOTE | 2022-08-14 14:53 | MHC.RECOVSUP ---
Addendum entered by Haider Dey 08/15/22 13:30: Pt informed he has medication from his PCP for AUD and plans to start taking it when he gets home. Pt shares this will be his first time taking PABLITO and if it goes well will continue to get it from his PCP. Original Note: Met with pt in 445 following up after being seen by Jocelyne and Shania. Provided pt with recovery resources and reviewed treatment options. Pt informs he has a therapist he likes seeing about 1x a week and attending meetings via zoom is best due to his anxiety in groups. Pt has no other questions or concerns at this time.
[2022-08-14] MEDS: Acetaminophen 325 MG TABLET 650 MG PO (15:45)
[2022-08-14] MEDS: Sucralfate 1 GM TABLET PO ×2 (17:17→21:28)
[2022-08-14] MEDS: Pantoprazole Sodium 40 MG/10 ML VIAL IVPUSH (18:28)
[2022-08-15] MEDS: Lactated Ringers 1,000 ML 100 ML IVCONT (02:36)
[2022-08-15 03:15] VITALS: BP 114/68; PULSE 86; RESP 18; TEMP 37.1; O2SAT 98
[2022-08-15] MEDS: Pantoprazole Sodium 40 MG/10 ML VIAL IVPUSH ×2 (06:15→17:32)
[2022-08-15 07:03] LABS: Hematocrit 28.8 % (42.0-52.0); Hemoglobin 9.3 g/dl (14.0-18.0); Mean Corpuscular HGB Conc 32.3 g/dl (31.0-36.0); Mean Corpuscular Hemoglobin 27.3 pg (27.0-33.0); Mean Corpuscular Volume 84.5 fL (80.0-98.0); Mean Platelet Volume 11.5 fL (9.4-12.4); Red Blood Count 3.41 X10*6/uL (4.60-5.80); Red Cell Distribution Width 15.5 % (11.0-16.0); White Blood Count 4.4 X10*3/uL (4.8-10.8)
[2022-08-15 07:05] LABS: NRBC Pct Auto 1.4 /100WBC (0.0-0.2); Platelet Count 96 X10*3/uL (160-400)
[2022-08-15 07:24] LABS: Alanine Aminotransferase 46 U/L (0-40); Albumin Level 3.1 g/dL (3.5-5.0); Alkaline Phosphatase 90 U/L (39-117); Anion Gap 10 (12-20); Aspartate Amino Transferase 127 U/L (5-37); Bilirubin Direct 0.7 mg/dL (0.0-0.5); Bilirubin Total 1.7 mg/dL (0.0-1.0); Blood Urea Nitrogen 8 mg/dL (9-16); Calcium 7.8 mg/dL (8.4-10.2); Carbon Dioxide 23 mmol/L (22-29); Chloride 104 mmol/L (96-108); Creatinine Clr Calc Pharmacy 149.1; Estimated Glomerular Filt Rate > 60; Glucose Random 108 mg/dL (60-115); Potassium 3.8 mmol/L (3.3-5.1); Sodium 133 mmol/L (135-145); Total Protein 5.3 g/dL (6.5-8.0)
[2022-08-15 07:50] VITALS: BP 124/79; PULSE 87; RESP 20; TEMP 36.3; O2SAT 97
[2022-08-15] MEDS: Sucralfate 1 GM TABLET PO ×4 (08:42→21:13)
[2022-08-15] MEDS: Ferrous Sulfate 324 MG TABLET.DR PO ×2 (08:43→17:32)
[2022-08-15] MEDS: PHENobarbitaL 30 MG TABLET 60 MG PO ×2 (08:43→21:13)
[2022-08-15] MEDS: FLUoxetine HCl 20 MG CAPSULE PO (08:43)
[2022-08-15] MEDS: Folic Acid 1 MG TABLET PO (08:43)
[2022-08-15] MEDS: Thiamine HCL 100 MG TABLET PO (08:43)
[2022-08-15 11:35] VITALS: BP 134/75; PULSE 89; RESP 20; TEMP 37; O2SAT 98
--- NOTE | 2022-08-15 13:17 | P.PNIM_ITS ---
Subjective Subjective Date of Service: 08/15/22 Interval History: feeling better this morning complaining of mild nausea, no abdominal pain, significant improvement in tremors, wishes to continue on clear liquid diet, does not feel hungry, no other events overnight, no fevers, no chills, no hematemesis, no melena ,tolerating clear liquid diet. Review of Systems Review of Systems: Yes all other systems are reviewed and are negative Physical Exam Vital Signs: Vital Signs: Last Vital Signs Temp 98.6 F 08/15/22 11:35 Pulse 89 08/15/22 11:35 Resp 20 08/15/22 11:35 BP 134/75 08/15/22 11:35 Pulse Ox 98 08/15/22 11:35 O2 Del Method Room Air 08/15/22 11:35 BMI result Body Mass Index 26.7 Const: Other: ?General awake ernesto rt x3, resting com fortably in no acu te distress.? Neck is supple no JVD. CVS? regular rate rhythm, Respirato ry lungs clear to auscultation, no r espiratory distres s, no wheeze, no r honchi. Gastrointe stinal abdomen sof t, no abdominal te nderness, bowel so unds audible, no g uarding , no rigid ity. Extremities n o? edema. Neuro no nfocal ,speech reid ar, mild hand trem ors. Skin no rash psych appropriate affect And pain med a Objective Data Active Medications Acetaminophen (Acetaminophen 325 Mg Tablet) 650 mg PO Q6H PRN PRN Reason: Pain, Mild (Pain Scale 1-3) Last Admin: 08/14/22 15:45 Dose: 650 mg Documented By: ALEC Ferrous Sulfate (Ferrous Sulfate 324 Mg Tablet.) 324 mg PO BIDWM [facility] Last Admin: 08/15/22 08:43 Dose: 324 mg Documented By: AMERICA Fluoxetine HCl (Fluoxetine Hcl 20 Mg Capsule) 20 mg PO DAILY [facility] Last Admin: 08/15/22 08:43 Dose: 20 mg Documented By: AMERICA Folic Acid (Folic Acid 1 Mg Tablet) 1 mg PO DAILY [facility] Last Admin: 08/15/22 08:43 Dose: 1 mg Documented By: AMERICA Lactated Ringer's (Lr) 1,000 mls @ 100 mls/hr IVCONT .Q10H [facility] Last Admin: 08/15/22 09:05 Dose: Not Given Documented By: ALEC Non-Admin Reason: IV Running Pt Own (Bupropion Hcl 150 Mg Tablet Sustained-Release 12 Hr) 150 mg PO DAILY [facility] Last Admin: 08/15/22 08:42 Dose: 150 mg Documented By: AMERICA Ondansetron HCl (Ondansetron Hcl 4 Mg/2 Ml Vial) 4 mg IVPUSH Q8H PRN PRN Reason: Nausea and Vomiting Last Admin: 08/14/22 10:55 Dose: 4 mg Documented By: ALEC Pantoprazole Sodium (Pantoprazole Sodium 40 Mg/10 Ml Vial) 40 mg IVPUSH BID@0630,1630 [facility] Last Admin: 08/15/22 06:15 Dose: 40 mg Documented By: MICHA Pharmacy Consult (Consult Rx Etoh Phenob Im/Po) 1 each MISCELLANE ONCE PRN; Protocol PRN Reason: Consult order Phenobarbital (Phenobarbital 30 Mg Tablet) 60 mg PO BID [facility] Stop: 08/15/22 21:01 Last Admin: 08/15/22 08:43 Dose: 60 mg Documented By: AMERICA Phenobarbital (Phenobarbital 30 Mg Tablet) 30 mg PO BID [facility]; Protocol Stop: 08/17/22 21:01 Phenobarbital (Phenobarbital 30 Mg Tablet) 30 mg PO DAILY [facility]; Protocol Stop: 08/19/22 09:01 Sodium Chloride (0.9 % Sodium Chloride Flush 3 Ml Syringe) 3 ml IVFLUSH QSHIFT [facility] Last Admin: 08/15/22 09:23 Dose: Not Given Documented By: AMERICA Non-Admin Reason: IV Running Sucralfate (Sucralfate 1 Gm Tablet) 1 gm PO QIDACHS [facility] Last Admin: 08/15/22 08:42 Dose: 1 gm Documented By: AMERICA Thiamine HCl (Thiamine Hcl 100 Mg Tablet) 100 mg PO DAILY [facility] Last Admin: 08/15/22 08:43 Dose: 100 mg Documented By: AMERICA Labs 08/15/22 06:35 08/15/22 06:35 Labs: Laboratory Results - last 24 hr 08/13/22 08/15/22 08/15/22 06:30 06:35 06:35 MCV 84.5 MCH 27.3 MCHC 32.3 RDW 15.5 Plt Count 96 L MPV 11.5 Absolute Nucleated RBC 0.060 H Nucleated RBC % (auto) 1.4 H Smear Path Review Anion Gap 10 L Estim Creat Clear Calc 149.1 Estimated GFR > 60 Random Glucose 108 Calcium 7.8 L Total Bilirubin 1.7 H Direct Bilirubin 0.7 H AST 127 H ALT 46 H Alkaline Phosphatase 90 Total Protein 5.3 L Albumin 3.1 L Blood Type O Positive Antibody Screen NEGATIVE Crossmatch See Detail Microbiology Microbiology Results: Microbiology 08/14/22 00:32 Blood Culture - Preliminary Blood - Venous No growth after 24 hours. 08/14/22 00:32 Blood Culture - Preliminary Blood - Venous No growth after 24 hours. Assessment and Plan (1) Alcohol withdrawal: Status: Acute (2) Alcoholic gastritis with bleeding: Status: Acute Plan 42 year old man admitted with alcohol withdrawal symptoms.? Was at [facility] for detox. Alcohol withdrawal Last drink was 08/12/22, less shakiness and tremors continue phenobarb protocol, folic acid and thiamine seen by Addiction Team patient desired to attend online AA meetings once discharged. acute on chronic Anemia due to acute UGI blood loss Likely alcoholic gastritis and iron deficiency hematocrit improved with 2 U seen by GI they recommended upper endoscopy however patient declined the procedure continue IV Protonix 40 mg b.i.d. times 24 hours and Carafate q.i.d. monitor H&H closely strongly recommend to abstain from alcohol Hyponatremia secondary to dehydration and beer potomania, sodium improved to 133 continue LR for now monitor sodium closely Transaminitis secondary to alcohol use, LFTs remains elevated, will follow DVT propylaxis with SCD boots Full code patient will need continued inpatient hospitalization for tx of anemia alcohol withdrawl requiring phenobarbitol protocol, and electrolyte monitoring. Time Spent With Patient Time: Total time managing care of this patient today ____ minutes. Quality Stroke Does the patient have a stroke diagnosis?: No VTE Prior VTE?: No VTE Risk Level:: Medical - moderate - high VTE Device Contraindication: N/A - Device Ordered VTE Drug Contraindication: Treatment Not Indicated
--- NOTE | 2022-08-15 14:41 | P.EN_ITS ---
Event Note Date of Service: 08/15/22 Event Note: Addiction consult placed Please see Recovery noted from [id number] Time Spent With Patient Time: Total time managing care of this patient today ____ minutes.
[2022-08-15 15:12] VITALS: BP 134/82; PULSE 88; RESP 17; TEMP 37.1; O2SAT 98
[2022-08-15] MEDS: Acetaminophen 325 MG TABLET 650 MG PO ×2 (17:40→23:37)
[2022-08-15 19:20] VITALS: BP 150/78; PULSE 113; RESP 17; TEMP 36.7; O2SAT 99
[2022-08-15 23:20] VITALS: BP 126/82; PULSE 86; RESP 18; TEMP 36.4; O2SAT 99
[2022-08-16] MEDS: 0.9 % Sodium Chloride Flush 3 ML SYRINGE IVFLUSH ×2 (01:30→07:43)
[2022-08-16 03:21] VITALS: BP 129/79; PULSE 82; RESP 18; TEMP 35.9; O2SAT 100
[2022-08-16] MEDS: Pantoprazole Sodium 40 MG/10 ML VIAL IVPUSH (05:29)
[2022-08-16 06:56] LABS: Hematocrit 32.1 % (42.0-52.0); Hemoglobin 10.1 g/dl (14.0-18.0); Mean Corpuscular HGB Conc 31.5 g/dl (31.0-36.0); Mean Corpuscular Hemoglobin 27.1 pg (27.0-33.0); Mean Corpuscular Volume 86.1 fL (80.0-98.0); Mean Platelet Volume 11.4 fL (9.4-12.4); NRBC Pct Auto 0.4 /100WBC (0.0-0.2); Platelet Count 144 X10*3/uL (160-400); Red Blood Count 3.73 X10*6/uL (4.60-5.80); Red Cell Distribution Width 16.5 % (11.0-16.0); White Blood Count 5.5 X10*3/uL (4.8-10.8)
[2022-08-16 07:04] LABS: Alanine Aminotransferase 55 U/L (0-40); Albumin Level 3.5 g/dL (3.5-5.0); Alkaline Phosphatase 104 U/L (39-117); Anion Gap 10 (12-20); Aspartate Amino Transferase 123 U/L (5-37); Bilirubin Direct 0.4 mg/dL (0.0-0.5); Bilirubin Total 0.9 mg/dL (0.0-1.0); Blood Urea Nitrogen 7 mg/dL (9-16); Calcium 8.3 mg/dL (8.4-10.2); Carbon Dioxide 24 mmol/L (22-29); Chloride 103 mmol/L (96-108); Estimated Glomerular Filt Rate > 60; Glucose Random 106 mg/dL (60-115); Potassium 3.9 mmol/L (3.3-5.1); Sodium 133 mmol/L (135-145); Total Protein 6.1 g/dL (6.5-8.0)
[2022-08-16] MEDS: Sucralfate 1 GM TABLET PO (07:40)
[2022-08-16] MEDS: Thiamine HCL 100 MG TABLET PO (07:41)
[2022-08-16] MEDS: Folic Acid 1 MG TABLET PO (07:41)
[2022-08-16] MEDS: FLUoxetine HCl 20 MG CAPSULE PO (07:41)
[2022-08-16] MEDS: Ferrous Sulfate 324 MG TABLET.DR PO (07:41)
[2022-08-16] MEDS: PHENobarbitaL 30 MG TABLET PO (07:41)
[2022-08-16 08:00] VITALS: BP 129/80; PULSE 87; RESP 20; TEMP 36.6; O2SAT 99
[2022-08-16 11:14] VITALS: BP 134/78; PULSE 89; RESP 20; TEMP 36.7; O2SAT 100
--- NOTE | 2022-08-16 12:28 | P.DS_ITS ---
DS: Providers Provider Date of Service: 08/16/22 Date of admission: 08/13/22 07:20 Primary care physician: Jadyn Milligan MD Consults: 08/13/22 07:22 Consult to Gastroenterology Routine Consulting Provider: Jolie Robins Reason for consultation: anemia, occult positive 08/13/22 14:49 Addiction Medicine Routine Consulting Provider: Jose Luis Covering Reason for consultation: ETOH withdrawal DS: Diagnosis Discharge Diagnosis (1) Alcohol withdrawal: Status: Acute (2) Alcoholic gastritis with bleeding: Status: Acute DS: Summary Hospital Course Hospital Course: history of presenting illness: Date of Service: 08/13/22 Chief Complaint: hand tremors 42 year old man presenting with severe hand tremors from alcohol withdrawal. He was at [facility] for detox and was noted to have such severe tremors he could not hold a glass. He was sent to the ED for further evaluation. He drinks about 15 shots a day at home and stopped drinking 08/12/22. He lives at home with his kids with his parents support. He denies chest pain, shortness breath, nausea vomiting diarrhea, recent travel, recent illness.? He was noted to be anemic with hemoglobin of 8.5 and hematocrit of 25.7 with positive stool occult.? Initial sodium of 130.? Abdominal pelvic CT with diverticulosis of the colon with no evidence of diverticulitis, colitis.? He has been tachycardia:? The ER secondary to alcohol withdrawal and blood pressure mildly elevated.? He was started on phenobarbital, given IV fluids, Ativan, vitamins and iron. He will be admitted for further management and treatment of acute alcohol withdrawal. hospital course: 42 year old man admitted with alcohol withdrawal symptoms.? Was at [facility] for detox. Alcohol withdrawal admitted to medical floor treated with phenobarb protocol, folic acid, and thiamine with good response, tremors resolved,Seen by Addiction Team patient desired to attend online AA meeting once discharge since patient is doing well with no nausea vomiting tolerating diet ambulating with steady gait he is being discharged home with strong recommendation to abstain pain from alcohol. acute on chronic Anemia? due to acute UGI blood loss,Likely alcoholic gastritis and Bren-Rasmussen tears, treated with 2 units of packed RBC hematocrit improved remains stable patient evaluated by Dr. Galvan son he recommended upper endoscopy however patient declined the procedure patient treated with IV Protonix, and Carafate no further GI bleed noted he is being discharged home on PPI twice daily and Carafate q.i.d. for 1 month recommend complete abstinence from alcohol and no NSAIDs. Hyponatremia secondary to dehydration and beer potomania, sodium improved to 133 Transaminitis Likely alcoholic hepatitis LFTs trending down recommend absti nence from alcohol. Time Spent with Patient Time attestation: Total time managing care of this patient today ____ minutes. Discharge coordination time: Greater than 30 minutes Quality: Safe Use of Opioids Does Pt have an Active Cancer Diagnosis on the Problem List?: No Quality: Stroke Does the patient have a stroke diagnosis?: No Physical Exam Vital Signs: Vital Signs: Last Vital Signs Temp 98.1 F 08/16/22 11:14 Pulse 89 08/16/22 11:14 Resp 20 08/16/22 11:14 BP 134/78 08/16/22 11:14 Pulse Ox 100 08/16/22 11:14 O2 Del Method Room Air 08/16/22 11:14 BMI result Body Mass Index 26.7 Const: Other: General awake alert x3, resting comfortably in no acute distress.? Neck is supple no JVD. CVS? regular rate rhythm, Respiratory lungs clear to auscultation, no respiratory distress, no wheeze, no rhonchi. Gastrointestinal abdomen soft,? Nontender , bowel sounds audible, no guarding , no rigidity. Extremities no? edema. Neuro nonfocal ,speech clear, mild hand tremors. Skin no rash psych appropriate affect DS: Data Data Completed and Pending Labs on day of discharge: Laboratory Results - last 24 hr 08/16/22 08/16/22 06:31 06:31 WBC 5.5 RBC 3.73 L Hgb 10.1 L Hct 32.1 L MCV 86.1 MCH 27.1 MCHC 31.5 RDW 16.5 H Plt Count 144 L D MPV 11.4 Absolute Nucleated RBC 0.020 H Nucleated RBC % (auto) 0.4 H Sodium 133 L Potassium 3.9 Chloride 103 Carbon Dioxide 24 Anion Gap 10 L BUN 7 L Creatinine 0.69 Estim Creat Clear Calc 147.0 Estimated GFR > 60 Random Glucose 106 Calcium 8.3 L D Total Bilirubin 0.9 Direct Bilirubin 0.4 AST 123 H ALT 55 H Alkaline Phosphatase 104 Total Protein 6.1 L Albumin 3.5 Preliminary micro results at discharge 08/14/22 00:32 Blood Culture - Preliminary Blood - Venous No growth after 48 hours. 08/14/22 00:32 Blood Culture - Preliminary Blood - Venous No growth after 48 hours. Discharge Plan Discharge Anticipated Discharge Date/Time: 08/16/22 12:05 Patient Disposition: Home, Self-Care Discharge Diagnosis: alcohol withdrawal Referrals: Jadyn Milligan MD [Primary Care Provider] - 1 Week Discharge Medications: New sucralfate 1 gram Tablet 1 g PO QIDACHS Qty: 120 0RF Continued bupropion HCl 150 mg Tablet Sustained-Release 12 Hr 150 mg PO DAILY fluoxetine [Prozac] 20 mg Capsule 20 mg PO DAILY acamprosate 333 mg Tablet,Delayed Release (Dr/Ec) 666 mg PO TID Changed pantoprazole 40 mg Tablet,Delayed Release (Dr/Ec) 40 mg PO BID@0630,1630 Qty: 60 0RF Discharge Orders: Discharge Order (Routine); Ordered 08/16/22 Ordered By: Sindy Arshad Diet: Advance to usual diet Activity on Discharge: As tolerated Stand Alone Forms: Patient Portal Discharge page Care Plan Goals: strongly recommend to abstain from alcohol, no [id number] Advil Motrin or NSAID take the Protonix 1 tablet twice daily for 4 weeks then Protonix 1 tablet daily, take Carafate for 1 month return to check with recurrent bouts of GI bleed Health Concerns: continue all home medications as before Plan of Treatment: outpatient follow-up with primary care physician call for appointment Assessment: as above
--- NOTE | 2022-08-16 13:09 | MHC.CM.PN ---
Pt medically cleared for D/C home no services. Pt has his own ride with family.
== END 2022-08-16 13:27 | disposition home or self-care (01) | DRG 241 ==
LOC: HO.ED 07:19 → HO.EDOVER 07:29 → HO.IMC 07:56
PROVIDERS: Internal Medicine; Admitting Provider Nurse Practitioner Acute Care; Emergency Provider Student in an Organized Health Care Education/Training Program; PCP Internal Medicine; Visit Provider Hospitalist
DX: K29.21 Alcoholic gastritis with bleeding (principal); F10.231 Alcohol dependence with withdrawal delirium; D62 Acute posthemorrhagic anemia; E87.1 Hypo-osmolality and hyponatremia; E86.0 Dehydration; K22.6 Gastro-esophageal laceration-hemorrhage syndrome; Z91.040 Latex allergy status; Z88.8 Allergy status to other drugs, medicaments and biological substances; Z79.899 Other long term (current) drug therapy
CPT/HCPCS: 36415; 71045; 74178; 80048; 80053; 80076; 80307; 81003; 82272; 82607; 82746; 83540; 83605; 83735; 84295; 85027; 86850; 86900; 86901; 86923; 87040; 87635; 87651; 93005; 99285; J2060; J2405; J2560; P9016; Q9967